=== PATIENT | male | born 1955 | race Caucasian/White ===

== ENCOUNTER 2023-07-31 01:11 | Emergency (ER) | payer MEDICARE, BC ==
[~2023-07-31] VITALS: Ht 185.4 cm; Wt 102.1 kg
[2023-07-31] MEDS ORDERED: MAGNESIUM SULFATE/D5W 100 ML ONE (01:23)
[2023-07-31] MEDS ORDERED: POTASSIUM BICARBONATE/CIT AC 25 MEQ TABLET.EFF ONE (01:23)
[2023-07-31] MEDS ORDERED: DILTIAZEM HCL 25 MG IV ONE ×4 (01:23→03:19)
[2023-07-31] MEDS ORDERED: ASPI81TA31 PO (01:29)
[2023-07-31] MEDS ORDERED: ATOR40TA PO (01:29)
[2023-07-31] MEDS ORDERED: IV NORMAL SALINE 1000 ML BAG IV ONE (01:30)
[2023-07-31] MEDS ORDERED: POTASSIUM BICARBONATE/CIT AC 25 MEQ TABLET.EFF PO ONE (01:30)
[2023-07-31] MEDS ORDERED: DILTIAZEM HCL 25 MG IV IV ONE ×3 (01:30→03:15)
[2023-07-31] MEDS: MAGNESIUM SULFATE/D5W 100 ML IV SCH ×3 (01:37→02:56)
[2023-07-31 01:44] LABS: MAGNESIUM 2.4 mg/dL (1.8-2.4)
[2023-07-31 01:45] LABS: CARBON DIOXIDE 24 mmol/L (21-32); CHLORIDE 105 mmol/L (98-107); CREATININE 1.3 mg/dL (0.6-1.3); GLUCOSE 159 mg/dL (74-106); SODIUM SERUM 144 mmol/L (136-145); UREA NITROGEN, BLOOD 13 mg/dL (7-18)
[2023-07-31 01:51] LABS: BASOPHILS # (AUTO) 0.1 K/UL (0.0-0.2); BASOPHILS % (AUTO) 0.8 % (0.0-2.0); EOSINOPHILS # (AUTO) 0.2 K/uL (0.0-0.7); EOSINOPHILS % (AUTO) 2.5 % (0.0-7.0); HEMATOCRIT 46.5 % (36.7-47.1); HEMOGLOBIN 16.2 g/dL (12.5-16.3); LYMPHOCYTES # (AUTO) 3.2 K/uL (0.8-4.8); LYMPHOCYTES % (AUTO) 37.8 % (20.5-51.5); MEAN CORPUSCULAR HEMOGLOBIN 33.1 uug (23.8-33.4); MEAN CORPUSCULAR HGB CONC 35 g/dL (32.5-36.3); MONOCYTES # (AUTO) 0.7 K/uL (0.1-1.30); MONOCYTES % (AUTO) 8.5 % (0.0-11.0); NEUTROPHILS # (AUTO) 4.2 K/uL (1.8-8.9); NEUTROPHILS % (AUTO) 50.4 % (38.5-71.5); PLATELET COUNT (AUTO) 290 K/uL (152-348); RED CELL DISTRIBUTION WIDTH 12.6 % (12.1-16.2); WHITE BLOOD COUNT (AUTO) 8.4 K/uL (3.6-10.2)
[2023-07-31 01:58] LABS: DIFFERENTIAL COMMENT 1; NT-PRO BNP 140 pg/mL (0-125); THYROID STIMULATING HORMONE 2.047 mIU/mL (0.358-3.740)
[2023-07-31] MEDS ORDERED: MAGNESIUM SULFATE/D5W 200 ML ONE (02:31)
[2023-07-31] MEDS ORDERED: PROPOFOL 200 MG/20 ML BOTTLE ONE (03:14)
[2023-07-31] MEDS ORDERED: FENTANYL CITRATE 100 MCG/2 ML AMPUL ONE (03:14)
[2023-07-31] MEDS ORDERED: FENTANYL CITRATE 100 MCG/2 ML AMPUL IV ONE (03:15)
[2023-07-31] MEDS ORDERED: PROPOFOL 200 MG/20 ML BOTTLE IV ONE (03:15)
[2023-07-31] MEDS ORDERED: FLAS1KIT2 TP (05:03)
[2023-07-31] MEDS ORDERED: FLAS1EAC2 TP (05:03)
[2023-07-31 05:09] VITALS: BP 113/72; TEMP 98.5; O2SAT 96
== END 2023-07-31 05:09 | disposition home or self-care (01) ==
LOC: ER 01:14
DX: I48.0 Paroxysmal atrial fibrillation (principal); E78.5 Hyperlipidemia, unspecified; Z79.82 Long term (current) use of aspirin; Z79.899 Other long term (current) drug therapy
CPT/HCPCS: 99291; 96365; 96375; 96366; 80048; 83880; 83735; 84443; 85025; 85379; 85730; 84484; 36415; 93005; 71045; 96376; J3490 ×4; J3475 ×2; J3010; J7040; A4606; A4663

== ENCOUNTER 2023-12-24 22:15 | Inpatient (IN) | payer MEDICARE, BC ==
[~2023-12-24] VITALS: Ht 185.4 cm; Wt 99.8 kg
[~2023-12-24 22:15] MED LIST: ASPI81TA31 PO; ATOR40TA PO; FLAS1EAC2 TP; FLAS1KIT2 TP
[2023-12-24] MEDS: MIDAZOLAM HCL 2 MG/2 ML VIAL IV ONE (22:30)
[2023-12-24] MEDS ORDERED: MIDAZOLAM HCL 2 MG/2 ML VIAL ONE (22:30)
[2023-12-24 22:55] LABS: CALCIUM 9.4 mg/dL (8.5-10.1); CREATININE 1.5 mg/dL (0.6-1.3); POTASSIUM 3.8 mmol/L (3.5-5.1)
[2023-12-24 23:07] LABS: ALBUMIN 4.1 g/dL (3.4-5.0); BILIRUBIN,TOTAL 0.5 mg/dL (0.2-1.0); MAGNESIUM 2.4 mg/dL (1.8-2.4); TOTAL PROTEIN, SERUM 7.7 g/dL (6.4-8.2)
[2023-12-24 23:22] LABS: BASOPHILS # (AUTO) 0.1 K/UL (0.0-0.2); BASOPHILS % (AUTO) 0.7 % (0.0-2.0); EOSINOPHILS # (AUTO) 0.1 K/uL (0.0-0.7); EOSINOPHILS % (AUTO) 1.2 % (0.0-7.0); HEMATOCRIT 47.9 % (36.7-47.1); HEMOGLOBIN 16.8 g/dL (12.5-16.3); LYMPHOCYTES # (AUTO) 3.7 K/uL (0.8-4.8); LYMPHOCYTES % (AUTO) 40.4 % (20.5-51.5); MEAN CORPUSCULAR HEMOGLOBIN 32.8 uug (23.8-33.4); MEAN CORPUSCULAR HGB CONC 35 g/dL (32.5-36.3); MEAN CORPUSCULAR VOLUME 93.5 fL (73.0-96.2); MONOCYTES # (AUTO) 0.9 K/uL (0.1-1.30); MONOCYTES % (AUTO) 10.3 % (0.0-11.0); NEUTROPHILS # (AUTO) 4.4 K/uL (1.8-8.9); NEUTROPHILS % (AUTO) 47.4 % (38.5-71.5); PLATELET COUNT (AUTO) 308 K/uL (152-348); RED BLOOD CELL COUNT(AUTO) 5.12 MIL/uL (4.06-5.63); RED CELL DISTRIBUTION WIDTH 12.7 % (12.1-16.2); WHITE BLOOD COUNT (AUTO) 9.2 K/uL (3.6-10.2)
[2023-12-24 23:37] LABS: THYROID STIMULATING HORMONE 3.203 mIU/mL (0.358-3.740)
[2023-12-25] MEDS ORDERED: MAGNESIUM HYDROXIDE 30 ML LIQUID UDC PO PRN (00:45)
[2023-12-25] MEDS ORDERED: REMEDY ESSENTIAL ZINC PASTE 113 GM TP PRN (00:45)
[2023-12-25] MEDS ORDERED: ACETAMINOPHEN 325 MG TABLET PO PRN (00:45)
[2023-12-25] MEDS ORDERED: ONDANSETRON 4 MG/2 ML VIAL IV PRN (00:45)
[2023-12-25 01:30] VITALS: BP 120/67; TEMP 97.9; O2SAT 98
[2023-12-25 04:00] VITALS: BP 102/61; TEMP 97.7; O2SAT 98
[2023-12-25 05:00] VITALS: O2SAT 96
[2023-12-25] MEDS: PANTOPRAZOLE SODIUM 40 MG TABLET.DR PO SCH (06:28)
[2023-12-25 08:00] VITALS: BP 119/67; TEMP 97.5; O2SAT 97
[2023-12-25] MEDS: ASPIRIN 81 MG TAB.CHEW PO SCH (08:20)
[2023-12-25] MEDS: METOPROLOL TARTRATE 50 MG TABLET PO SCH (08:20)
[2023-12-25] MEDS: ENOXAPARIN SODIUM 100 MG/ML DISP.SYRIN SQ SCH (08:31)
[2023-12-25 08:36] LABS: BASOPHILS % (AUTO) 0.4 % (0.0-2.0); EOSINOPHILS # (AUTO) 0.1 K/uL (0.0-0.7); EOSINOPHILS % (AUTO) 0.8 % (0.0-7.0); HEMATOCRIT 44.6 % (36.7-47.1); HEMOGLOBIN 15.2 g/dL (12.5-16.3); LYMPHOCYTES # (AUTO) 2.3 K/uL (0.8-4.8); LYMPHOCYTES % (AUTO) 26.9 % (20.5-51.5); MEAN CORPUSCULAR HEMOGLOBIN 32.4 uug (23.8-33.4); MEAN CORPUSCULAR HGB CONC 34 g/dL (32.5-36.3); MEAN CORPUSCULAR VOLUME 94.9 fL (73.0-96.2); MONOCYTES # (AUTO) 0.9 K/uL (0.1-1.30); MONOCYTES % (AUTO) 10.5 % (0.0-11.0); NEUTROPHILS # (AUTO) 5.2 K/uL (1.8-8.9); NEUTROPHILS % (AUTO) 61.4 % (38.5-71.5); PLATELET COUNT (AUTO) 253 K/uL (152-348); RED CELL DISTRIBUTION WIDTH 12.7 % (12.1-16.2); WHITE BLOOD COUNT (AUTO) 8.4 K/uL (3.6-10.2)
[2023-12-25 08:45] LABS: DIFFERENTIAL COMMENT 1
[2023-12-25 08:59] LABS: CREATININE 1.2 mg/dL (0.6-1.3); POTASSIUM 4.8 mmol/L (3.5-5.1)
[2023-12-25] MEDS ORDERED: ENOXAPARIN SODIUM 40 MG/0.4 ML DISP.SYRIN SQ SCH (09:00)
[2023-12-25 09:05] LABS: ALBUMIN 3.8 g/dL (3.4-5.0); BILIRUBIN,TOTAL 0.8 mg/dL (0.2-1.0); TOTAL PROTEIN, SERUM 7.6 g/dL (6.4-8.2)
[2023-12-25 12:00] VITALS: BP 116/65; TEMP 97.9; O2SAT 97
[2023-12-25] MEDS ORDERED: ATORVASTATIN 40 MG TABLET PO SCH (21:00)
== END 2023-12-25 22:00 | disposition short-term general hospital (02) | DRG 280 ==
LOC: ER 22:16 → TELE3 12-25 00:34
PROVIDERS: ADMIT Student in an Organized Health Care Education/Training Program; ATTEND Internal Medicine
PROC: 5A2204Z Restoration of Cardiac Rhythm, Single (ICD-10-PCS; principal; 2023-12-25)
DX: I47.10 Supraventricular tachycardia, unspecified (principal); I21.4 Non-ST elevation (NSTEMI) myocardial infarction; N17.0 Acute kidney failure with tubular necrosis; Q21.12 Patent foramen ovale; I48.0 Paroxysmal atrial fibrillation; E78.5 Hyperlipidemia, unspecified; I47.20 Ventricular tachycardia, unspecified
CPT/HCPCS: 36415; 83735; 84443; 84484; 85025; 93005; 93307; G0378; J1650; J2250